=== PATIENT | male | born 1980 | race Caucasian/White ===

== ENCOUNTER → 2022-03-05 | Outpatient (CLI) | payer OTHER ==
[~2022-03-05] MED LIST: EUTHYROX125 MCG PO; HYDCOR10 PO
== END | disposition home or self-care (01) ==
LOC: LAB 07:30 → PLD 07:30 → LAB SHORT 07:30
DX: D22.5 Melanocytic nevi of trunk (principal)
CPT/HCPCS: 88305

== ENCOUNTER 2023-12-12 12:21 | Observation (INO) | payer OTHER ==
[~2023-12-12] VITALS: Ht 182.9 cm; Wt 93.3 kg
[2023-12-12] MEDS ORDERED: Lactated Ringer's 1,000 ML IV ONE ×2 (13:01→13:10)
[2023-12-12] MEDS ORDERED: LAMOTRIGINE250 MG PO (13:09)
[2023-12-12] MEDS ORDERED: ATOR40TA PO (13:09)
[2023-12-12] MEDS ORDERED: Hydrocortisone Sod Succinate 100 MG Vial IV ONE (13:15)
[2023-12-12] MEDS ORDERED: Acetaminophen 325 MG TABLET PO ONE (13:20)
[2023-12-12 13:31] LABS: BASOPHILS ABSOLUTE AUTO 0.02 K/mm3 (0.00-0.23); BASOPHILS PERCENT AUTO 0 % (0-2); EOSINOPHILS ABSOLUTE AUTO 0.04 K/mm3 (0.00-0.68); EOSINOPHILS PERCENT AUTO 1 % (0-6); Hematocrit 39.3 % (37.0-53.0); Hemoglobin 13.7 g/dL (13.5-17.5); IMMATURE GRAN ABSOLUTE AUTO 0.03 K/mm3 (0.00-0.10); IMMATURE GRAN PERCENT AUTO 0 % (0-1); LYMPHOCYTES ABSOLUTE AUTO 1.01 K/mm3 (0.84-5.20); LYMPHOCYTES PERCENT AUTO 12 % (21-46); MONOCYTES ABSOLUTE AUTO 1.47 K/mm3 (0.16-1.47); MONOCYTES PERCENT AUTO 18 % (4-13); Mean Corpuscular HGB 28.1 pg (26.0-34.0); Mean Corpuscular HGB Conc 34.9 g/dL (31.5-36.5); Mean Corpuscular Volume 81 fL (80-100); Mean Platelet Volume 9.6 fL (9.1-12.4); NEUTROPHILS ABSOLUTE AUTO 5.82 K/mm3 (1.96-9.15); NEUTROPHILS PERCENT AUTO 69 % (41-73); Platelet Count 234 K/mm3 (150-400); RDW Coefficient Variation 12.5 % (11.7-14.2); Red Blood Cell Count 4.88 M/mm3 (4.30-5.90); White Blood Cell Count 8.39 K/mm3 (4.00-11.30)
[2023-12-12 13:37] LABS: Albumin, Blood 3.7 g/dL (3.4-5.0); Bilirubin, Direct 0.2 mg/dL (0.0-0.3); Bilirubin, Indirect 0.9 mg/dL (0.1-0.7); Bilirubin, Total 1.1 mg/dL (0.1-1.0); Bun/Creatinine Ratio 16.5 (12.0-20.0); Calcium, Blood 9.2 mg/dL (8.5-10.1); Creatinine, Blood 1.21 mg/dL (0.60-1.20); Globulin, Blood 3.8 g/dL (2.2-4.0); Magnesium, Blood 1.9 mg/dL (1.6-2.4); Phosphorus, Blood 3.9 mg/dL (2.5-4.9); Potassium, Blood 3.4 mmol/L (3.5-5.5); Total Protein, Blood 7.5 g/dL (6.4-8.2)
[2023-12-12] MEDS ORDERED: NS 1,000 ML IV SCH (14:00)
[2023-12-12 14:14] LABS: International Normalized Ratio 1.08; Prothrombin Time Results 11.3 Sec (9.7-11.5)
[2023-12-12] MEDS ORDERED: Lactated Ringer's 1,000 ML IV SCH ×2 (15:10→16:25)
[2023-12-12] MEDS ORDERED: CefTRIAXone Sodium 2,000 MG in NS 100 ML IV ONE (15:45)
[2023-12-12 15:49] LABS: Influenza A, PCR NEGATIVE (NEGATIVE); Influenza B, PCR NEGATIVE (NEGATIVE); Resp Syncytial Virus, PCR NEGATIVE (NEGATIVE); SARS-Cov-2 (COVID-19) PCR, MMC POSITIVE (NEGATIVE)
[2023-12-12] MEDS ORDERED: Acetaminophen 325 MG TABLET PO PRN (16:25)
[2023-12-12] MEDS ORDERED: Potassium Chloride 20 MEQ TabCR PO ONE (16:25)
[2023-12-12] MEDS ORDERED: FLU VACC QS2023-24(6MOS UP)/PF 60 MCG/0.5 ML SYRINGE IM SCH (16:30)
[2023-12-12 16:50] LABS: Source, Urine Clean Catch
[2023-12-12 16:55] LABS: Appearance, Urine Hazy (Clear); Bilirubin, Urine Neg (Neg); Blood, Urine 5+ (Neg); Color, Urine Amber (P-Yellow); Glucose Qualitative, Urine Neg (Neg); Ketones, Urine Neg (Neg); Leukocyte Esterase, Urine Neg (Neg); Nitrite, Urine Neg (Neg); Protein, Urine 2+ (Neg); Specific Gravity, Urine 1.005 (1.003-1.022); Urobilinogen, Urine NORM (Normal)
[2023-12-12] MEDS ORDERED: Azithromycin 500 MG in NS 250 ML IV SCH (17:00)
[2023-12-12 17:05] LABS: Bacteria Few /hpf; Hyaline Casts 0-2 /lpf (0-2); Red Blood Cells, Urine 25-50 /hpf (0-2); Squamous Epithelial Cells Rare /hpf (Few); White Blood Cells, Urine 0-2 /hpf (0-5)
[2023-12-12 17:06] LABS: Renal Epithelial Rare /hpf (0-Rare)
[2023-12-12 18:12] VITALS: BP 107/79
--- NOTE | 2023-12-12 19:26 | NUR ---
Assumed care of pt on arrival to PCU 13 from emergency dept at 1810. Pt stood to transfer from [facility] to bed with supervision. Steady on feet. Parents at bedside who are pt's caregivers. Pt A&O x 2. Knew it was 2023 but didn't know the month or that yesterday was Frias's Day. SpO2 90% or greater RA. Lungs clear t/o. No cough noted. Ambulated to bathroom 2x while this RN in room and tolerated this activity well. Educated pt to call for staff when he wants to get out of bed since he has IVs connected. Pt verbalizes understanding, family states they think he will comply with fall precautions. SR per monitor. BP stable.
--- NOTE | 2023-12-12 19:41 | NUR ---
ASSUMED CARE OF PATIENT AT 1900. REPORT RECEIVED FROM FRAN VELASQUEZ. VSS AND NO ACUTE NEEDS IDENTIFIED. FAMILY TO BEDSIDE BRINGING PT DINNER. ZITHROMAX INFUSING TO LAC. SEE SHIFT ASSESSMENT FOR FULL ASSESSMENT DETAILS.
[2023-12-12] MEDS ORDERED: Lactobacil 2-S.Thermo-Bifido 1 1 Cap PO SCH (21:00)
[2023-12-12] MEDS ORDERED: Hydrocortisone Sod Succinate 100 MG Vial IV SCH (23:00)
[2023-12-13] VITALS: BP 123/83
[2023-12-13 03:19] VITALS: BP 110/73
[2023-12-13 03:36] LABS: BASOPHILS ABSOLUTE AUTO 0.01 K/mm3 (0.00-0.23); BASOPHILS PERCENT AUTO 0 % (0-2); EOSINOPHILS PERCENT AUTO 0 % (0-6); Hematocrit 32.5 % (37.0-53.0); Hemoglobin 11.1 g/dL (13.5-17.5); IMMATURE GRAN ABSOLUTE AUTO 0.03 K/mm3 (0.00-0.10); IMMATURE GRAN PERCENT AUTO 1 % (0-1); LYMPHOCYTES PERCENT AUTO 14 % (21-46); MONOCYTES PERCENT AUTO 16 % (4-13); Mean Corpuscular HGB 27.8 pg (26.0-34.0); Mean Corpuscular HGB Conc 34.2 g/dL (31.5-36.5); Mean Corpuscular Volume 82 fL (80-100); Mean Platelet Volume 9.3 fL (9.1-12.4); NEUTROPHILS PERCENT AUTO 69 % (41-73); Platelet Count 184 K/mm3 (150-400); RDW Coefficient Variation 12.4 % (11.7-14.2); RDW Standard Deviation 36.9 fL (35.1-46.3); Red Blood Cell Count 3.99 M/mm3 (4.30-5.90); White Blood Cell Count 6.24 K/mm3 (4.00-11.30)
[2023-12-13 04:06] LABS: Bun/Creatinine Ratio 20.7 (12.0-20.0); Calcium, Blood 9.1 mg/dL (8.5-10.1); Creatinine, Blood 0.82 mg/dL (0.60-1.20); Potassium, Blood 3.7 mmol/L (3.5-5.5)
[2023-12-13] MEDS ORDERED: Levothyroxine Sodium 0.125 MG Tab PO SCH (06:00)
--- NOTE | 2023-12-13 06:09 | NUR ---
SHIFT SUMMARY PT REMAINED ALERT AND ORIENTED T/O ENTIRETY OF SHIFT. HE IS UNABLE TO VERBALIZE THE EXACT DATE, STATING, "I DON'T HAVE MY PHONE ON ME". ABLE TO FOLLOW VERBAL COMMANDS AND MAKE PURPOSEFUL MOVEMENTS. MONITOR SHOWED SR, BP REMAINED STABLE T/O. ON ROOM AIR WITH O2 SATURATIONS >90%. INDEPENDENTLY VOIDS AT BEDSIDE INTO URINAL. NO BM THIS SHIFT. LAC INFUSING LR AT 75mL/HR. CALL LIGHT IN REACH. WILL CONTINUE TO MONITOR AND REPORT TO ONCOMING RN.
[2023-12-13 07:46] VITALS: BP 134/85
[2023-12-13] MEDS ORDERED: Atorvastatin 40 MG Tab PO SCH (09:00)
[2023-12-13] MEDS ORDERED: CefTRIAXone Sodium 1,000 MG in NS 50 ML IV SCH (09:00)
[2023-12-13] MEDS ORDERED: LamoTRIgine 25 MG Tab PO SCH (09:00)
[2023-12-13] MEDS ORDERED: LamoTRIgine 100 MG Tab PO SCH (09:00)
[2023-12-13] MEDS ORDERED: Hydrocortisone 10 MG Tab PO SCH (09:00)
[2023-12-13] MEDS ORDERED: Enoxaparin 40 MG/0.4 ML SYR SC SCH (09:00)
--- NOTE | 2023-12-13 09:23 | NUR ---
AM NOTE: PATIENT ALERT AND ORIENTED X3. FORGETFUL OF DATE. NEURO AT BASELINE. BASELINE BILATERAL BLINDNESS WITH NYSTAGMUS, PATIENT ABLE TO SEE ITEMS UP CLOSE. WEARING GLASSES. PARENTS AT BEDSIDE THIS AM. UP IND TO USE URINAL. TELE SHOWING SR WITH HR 70-90'S. SBP 130'S. DENIES CHEST PAIN/PRESSURE/PALPITATIONS. PPP. IV FLUIDS DISCONTINUED AND IV ABX INFUSED THIS AM. ON ROOM AIR SATING ABOVE 95%. DENIES SOB/COUGH. LUNGS SOUNDING CLEAR. EVEN AND UNLABORED RESPIRATIONS. BOWEL TONES PRESENT. PATIENT EATING AND VOIDING WNL. PATIENT DRINKING [place]CKS BROUGHT IN BY PARENTS. DENIES ABDOMINAL PAIN/NAUSEA/CRAMPING. SKIN OVERALL C/D/I. PATIENT LAYING IN BED AT THIS TIME PLAYING ON PHONE, DENIES NEEDS. DR. MCNEIL IN TO UPDATE PATIENT AND PARENTS. THIS RN AT BEDSIDE FOR PROVIDER ROUNDING THIS AM.
[2023-12-13 11:06] VITALS: BP 133/93
--- NOTE | 2023-12-13 14:22 | NUR ---
PRELIM MICRO BLOOD CULTURE RESULTS CALLED INTO DR. MCNEIL. PLAN FOR DISCHARGE. PATIENT AND PATIENT PARENTS UPDATED.
[2023-12-13] MEDS ORDERED: ACET325 PO (15:01)
[2023-12-13] MEDS ORDERED: PROBIOTIC1 EA14 PO (15:03)
[2023-12-13] MEDS ORDERED: AMOCLA875 PO (15:04)
[2023-12-13] MEDS ORDERED: VISBIOME 112.51 EACH PO (15:04)
--- NOTE | 2023-12-13 15:17 | NUR ---
discharge: DISCHARGE WNL. PARENTS AT BEDSIDE. THIS RN FAXED NEW MEDICATIONS TO [facility]. NO ACUTE CHANGES. THIS RN REVIEWED NEW ANTIBIOTIC AND PROBIOTIC. IV REMOVED WNL. PATIENT LEFT UNIT WITH DISCHARGE PACKET AND ALL PERSONAL BELONGINGS.
== END 2023-12-13 15:16 | disposition home or self-care (01) ==
LOC: ER 12:21 → PCU 12:22 → ER 17:16 → PCU 17:16
PROVIDERS: Physician Assistant; ADMIT Family Medicine
DX: E27.40 Unspecified adrenocortical insufficiency (principal); R65.20 Severe sepsis without septic shock; G31.84 Mild cognitive impairment of uncertain or unknown etiology; U07.1 COVID-19; E03.9 Hypothyroidism, unspecified; E78.5 Hyperlipidemia, unspecified; N17.9 Acute kidney failure, unspecified; E87.20 Acidosis, unspecified; H54.7 Unspecified visual loss; Z88.8 Allergy status to other drugs, medicaments and biological substances
CPT/HCPCS: 0241U; 36415; 71045; 80048; 80053; 81001; 82248; 83605; 83735; 84100; 84145; 84443; 85025; 85610; 85730; 87040; 93005; 93010; 96365; 96375; 99285-25; A9270; G0378; J0456; J0696; J1650; J1720; J7030; J7050; J7120

== ENCOUNTER → 2025-01-21 | Outpatient (CLI) | payer OTHER ==
[~2025-01-21] MED LIST changes: +ACET325 PO; +AMOCLA875 PO; +ATOR40TA PO; +LAMOTRIGINE250 MG PO; +PROBIOTIC1 EA14 PO; +VISBIOME 112.51 EACH PO
== END ==
LOC: LAB 15:04 → LAB SHORT 15:04
DX: R31.9 Hematuria, unspecified (principal)
CPT/HCPCS: 87086